=== PATIENT | female | born 1960 | race Caucasian/White ===

== ENCOUNTER 2023-08-11 16:48 | Emergency (ER) | payer OTHER, SELFPAY ==
[2023-08-11 16:56] VITALS: BP 137/92; PULSE 90; RESP 16; TEMP 36.1; O2SAT 97
--- NOTE | 2023-08-11 17:01 | ED.URI ---
HPI - URI/Sore Throat General Chief Complaint: Upper Respiratory Infection Stated Complaint: Cough,Congestion,Shortness of Breath Time Seen by Provider: 08/11/23 17:01 Source: patient Mode of arrival: ambulatory Limitations: no limitations History of Present Illness HPI Narrative: 62 yo F with hx of asthma presents with c/o cough for 2 wks. Saw PCP and told to continue using inhalers. Pt state cough started after coming home from [place]. Feels she needs steroid due to her asthma but PCP did not agree. Over past few days having SOB with exertion. Taking daily allergy meds. Last used albuterol neb 3 days ago. States makes me very shaky . afebrile. Is having some intermittent dizziness when standing. All systems reviewed and negative except as noted above. Related Data Home Medications Medication Instructions Recorded Confirmed albuterol sulfate 90 mcg/actuation 90 mcg inhalation PRN PRN 08/11/23 08/11/23 aerosol inhaler (ProAir HFA) Shortness Of Breath Or Wheezing clonazepam 1 mg tablet 1 mg PO DAILY 08/11/23 08/11/23 ezetimibe 10 mg tablet 10 mg PO DAILY 08/11/23 08/11/23 glipizide 5 mg tablet 5 mg PO DAILY 08/11/23 08/11/23 losartan 50 mg tablet 50 mg PO DAILY 08/11/23 08/11/23 metformin 500 mg tablet 500 mg PO BID 08/11/23 08/11/23 semaglutide 0.25 mg or 0.5 mg (2 0.5 mg subcut WEEKLY 08/11/23 08/11/23 mg/3 mL) subcutaneous pen injector (Ozempic) sertraline 100 mg tablet 100 mg PO DAILY 08/11/23 08/11/23 Allergies Allergy/AdvReac Type Severity Reaction Status Date / Time Penicillins AdvReac Mild Rash Verified 08/11/23 17:09 Review of Systems Review of Systems: CONSTITUTIONAL: Denies fever, chills, or sweats. reports fatigue. EYES: Denies visual changes, redness, or discharge. ENT: Denies rhinorrhea, congestion, sore throat, or otalgia. CARDIOVASCULAR: Denies chest pain, palpitations, or edema. RESPIRATORY: reports cough and dyspnea with exertion. GASTROINTESTINAL: Denies abdominal pain, nausea, vomiting, or diarrhea. GENITOURINARY: Denies dysuria or hematuria. SKIN: Denies rash or itching. MUSCULOSKELETAL: Denies back pain, joint pain, or myalgia. NEUROLOGIC: Denies headache, numbness, or weakness. Reports intermittent dizziness with position changes. PSYCHIATRIC: Denies anxiety or depression. All other systems reviewed are negative, except as documented in HPI. PMFSH Comments At time of signature, agree with nursing past medical, surgical, social and family history. There is no relevant family history pertinent to the presenting complaint. Exam Narrative: GENERAL: This is a well-nourished, well-developed patient, Patient ill-appearing but in no acute distress. HEAD: normocephalic, atraumatic. EYES: PERRL. Sclera clear/white. Vision is grossly intact. EARS: External ears normal, auditory canals clear and without drainage, TMs normal without perforation. Hearing grossly intact. NOSE: External nose normal with no obvious nasal discharge, nares without redness, no rhinorrhea. THROAT: Mucous membranes moist, posterior pharynx clear. NECK: Neck supple, non-tender without lymphadenopathy, masses or thyromegaly. CARDIOVASCULAR: Regular rate and rhythm without murmurs, gallops, or rubs. RESPIRATORY: Mild expiratory wheezing to upper lung da[place]le otherwise clear. Breath sounds equal bilaterally. No rales, or rhonchi. SKIN: warm, Dry, intact with no suspicious lesions or rash, good texture and turgor. NEURO: awake, alert, and oriented to person, place and time. There were no obvious focal neurologic abnormalities. EXTREMITIES: No joint tenderness, effusion, or edema noted. Course Course Level of Care: Express Care Visit Vital Signs Vital signs: Vital Signs Temperature 36.1 C L 08/11/23 16:56 Pulse Rate 90 08/11/23 16:56 Respiratory Rate 16 08/11/23 16:56 Blood Pressure 137/92 H 08/11/23 16:56 Pulse Oximetry 97 08/11/23 16:56 Oxygen Delivery Room Air 08/11/23 16:56
== END 2023-08-11 17:20 | disposition home or self-care (01) ==
PROVIDERS: Emergency Provider Nurse Practitioner Family; PCP Physician Assistant
DX: J45.901 Unspecified asthma with (acute) exacerbation (principal); J06.9 Acute upper respiratory infection, unspecified; E78.00 Pure hypercholesterolemia, unspecified; E11.9 Type 2 diabetes mellitus without complications; Z79.84 Long term (current) use of oral hypoglycemic drugs; F41.9 Anxiety disorder, unspecified; F32.A Depression, unspecified; Z86.16 Personal history of COVID-19
CPT/HCPCS: 99203; G0463